=== PATIENT | female | born 1975 | race African-American/Black ===

== ENCOUNTER 2020-03-17 09:50 | Outpatient (REF) | payer BC, SELFPAY ==
[2020-03-20 00:26] LABS: HPV mRNA E6/E7 rflx Not Detected (Not Detected)
== END 2020-03-17 09:51 | disposition home or self-care (01) ==
LOC: HO.LAB 09:50
PROVIDERS: Visit Provider Obstetrics & Gynecology
DX: Z01.419 Encounter for gynecological examination (general) (routine) without abnormal findings (principal); R87.612 Low grade squamous intraepithelial lesion on cytologic smear of cervix (LGSIL)
CPT/HCPCS: 87624; 87625; 88142

== ENCOUNTER 2020-04-07 09:39 | Outpatient (REF) | payer BC, SELFPAY ==
[2020-04-07 14:16] LABS: CT PCR NOT DETECTED (Not Detect.); NG PCR NOT DETECTED (Not Detect.)
== END 2020-04-07 09:40 | disposition home or self-care (01) ==
LOC: HO.LAB 09:39
PROVIDERS: Visit Provider Obstetrics & Gynecology
DX: Z30.09 Encounter for other general counseling and advice on contraception (principal); Z32.02 Encounter for pregnancy test, result negative
CPT/HCPCS: 57456; 81025; 87491; 87591; 88305

== ENCOUNTER → 2020-05-05 15:32 | Outpatient (BNVA) | payer BC, SELFPAY | PROVIDERS: PCP Transplant Surgery; Visit Provider Obstetrics & Gynecology | DX: Z76.89 Persons encountering health services in other specified circumstances (principal) ==

== ENCOUNTER 2021-05-27 14:37 | Outpatient (REF) | payer OTHER, SELFPAY ==
[2021-05-27 16:25] LABS: Syphilis Screen Nonreactive (Nonreactive)
[2021-05-28 01:50] LABS: CT PCR NOT DETECTED (Not Detect.); NG PCR NOT DETECTED (Not Detect.)
[2021-05-28 09:14] LABS: BV Int Neg Control Negative (Negative); BV Int Pos Control Positive (Positive)
[2021-05-29 08:28] LABS: ~HepC Num1 0.14 S/CO (0.00-0.79); ~Hepatitis C Antibody Nonreactive (Nonreactive)
[2021-05-29 08:39] LABS: HBsAGNum1 0.25 S/CO (0.00-0.99); Hepatitis B Surface Antigen Negative (Negative)
[2021-05-29 09:16] LABS: HIV AB/AG Reactive (Nonreactive); HIV Num 3 698.92 S/CO
[2021-06-04 15:00] LABS: HIV 2 Antibody NEGATIVE
[2021-06-04 15:28] LABS: HIV 1 Antibody POSITIVE
== END 2021-05-27 14:38 | disposition home or self-care (01) ==
LOC: HO.LAB 14:37
PROVIDERS: PCP Transplant Surgery; Visit Provider Obstetrics & Gynecology
DX: Z01.411 Encounter for gynecological examination (general) (routine) with abnormal findings (principal); Z11.4 Encounter for screening for human immunodeficiency virus [HIV]; N76.0 Acute vaginitis; B96.89 Other specified bacterial agents as the cause of diseases classified elsewhere; N94.9 Unspecified condition associated with female genital organs and menstrual cycle; Z20.2 Contact with and (suspected) exposure to infections with a predominantly sexual mode of transmission
CPT/HCPCS: 36415; 86701; 86702; 86780; 86803; 87340; 87389; 87480; 87491; 87510; 87591; 87660

== ENCOUNTER → 2021-06-02 12:04 | Outpatient (BNVA) | payer OTHER, SELFPAY | PROVIDERS: Visit Provider Obstetrics & Gynecology ==

== ENCOUNTER 2021-06-15 13:45 | Outpatient (REF) | payer OTHER, SELFPAY ==
--- NOTE | ~2021-06-15 | US_ITS ---
EXAMINATION: US PELVIS CLINICAL INFORMATION: Pelvic pain COMPARISON: None TECHNIQUE: Ultrasound of the pelvis is performed using both transabdominal and transvaginal transducers along with Doppler. Transvaginal imaging is performed due to inadequate visualization transabdominally. FINDINGS: The uterus is anteverted. The uterus measures 12.2 x 5.8 x 8 cm in dimension. There are multiple hypoechoic uterine lesions probably representing fibroids. The 5 largest are measured. There is a 1.8 x 1.1 x 1.2 cm lesion in the anterior uterine body. There is a 2 x 1.2 x 1.4 cm lesion in the anterior uterine body adjacent to the endometrium. There is a 2.4 x 2 x 2.6 cm lesion in the anterior right uterine fundus. There is a 4.1 x 4.5 x 2.8 cm lesion subserosal the left posterior uterine fundus. There is a 1.9 x 1.2 x 1.6 cm lesion in the right anterior upper uterine body. Endometrial thickness is normal measuring 0.4 cm. The right ovary is normal and measures 2.4 x 1.2 x 1.6 cm. Left ovary is enlarged and measures 6.6 x 4.1 x 4.6 cm. There are 2 simple left ovarian cysts measuring 4.2 x 2.7 x 4 cm and 2.4 x 2.6 x 2.2 cm. There is no fluid in the pelvis. US/US pelvic and transvaginal IMPRESSION: Multiple uterine fibroids, largest subserosal to the left posterior uterine fundus measuring 4.1 x 2.5 x 2.8 cm. Enlarged left ovary and 2 simple left ovarian cysts measuring 4.2 x 2.7 x 4 cm 2.1 x 2.6 x 2.2 cm.
== END 2021-06-15 13:46 | disposition home or self-care (01) ==
LOC: HO.US 13:45
PROVIDERS: PCP Orthopaedic Surgery Sports Medicine; Visit Provider Obstetrics & Gynecology
DX: N94.9 Unspecified condition associated with female genital organs and menstrual cycle (principal)
CPT/HCPCS: 76830; 76856

== ENCOUNTER 2021-06-26 13:44 | Outpatient (REF) | payer OTHER, SELFPAY ==
--- NOTE | ~2021-06-26 | MM_ITS ---
EXAMINATION: MM SCREENING DIGITAL BREAST TOMOSYNTHESIS, BILATERAL CLINICAL INFORMATION: Screening. Asymptomatic. Prior history biopsy right breast consistent with fibroadenoma 08/06/2019 ([place], [place]). The lifetime risk of breast cancer based on the Tyrer-Cuzick Model is 9%. COMPARISON: Outside mammography: 06/20/2019 ([facility], [place], [place]). TECHNIQUE: Digital breast tomosynthesis is performed in both the craniocaudal and mediolateral oblique views along with computer-aided detection (CAD). Synthesized 2D images are generated from the tomosynthesis. Additional right CC view is provided. Keloids are marked with skin markers. FINDINGS: There are scattered areas of fibroglandular density (ACR BI-RADS breast composition Category b). Parenchymal pattern is similar to prior outside exam. There is a stable 1.3 cm nodule with open coil biopsy clip marker right breast mid 5:00 position. Smaller stable nodule also noted posterior 12:00 position with either a clip or coarse calcification at margin. There is a dermal lesion consistent with known keloid overlying the mid 9:00 left breast and dermal densities marked with skin markers overlying the anterior mid right breast. There is no interval mass or architectural abnormality or developing density. Some regional round rim dermal calcifications are again seen 9:00-10:00 left breast. The axilla are unremarkable. No significant changes. MM/MM tomosynthesis screening BI IMPRESSION: No significant changes from prior outside exam. ASSESSMENT: BI-RADS 2: Benign RECOMMENDATION: Routine annual mammography screening. This patient's information was entered into a reminder system with a target due date for their next mammogram.
== END 2021-06-26 13:45 | disposition home or self-care (01) ==
LOC: HO.MAMMO 13:44
PROVIDERS: Visit Provider Obstetrics & Gynecology
DX: Z12.31 Encounter for screening mammogram for malignant neoplasm of breast (principal)
CPT/HCPCS: 77063; 77067

== ENCOUNTER → 2021-06-29 11:29 | Outpatient (BNVA) | payer OTHER, SELFPAY | PROVIDERS: Visit Provider Obstetrics & Gynecology ==

== ENCOUNTER → 2021-07-22 13:36 | Outpatient (BNVA) | payer OTHER, SELFPAY | PROVIDERS: PCP Orthopaedic Surgery Sports Medicine; Referring Provider Obstetrics & Gynecology; Visit Provider Nurse Practitioner Family | DX: Z01.818 Encounter for other preprocedural examination (principal) | CPT/HCPCS: 99202 ==

== ENCOUNTER 2021-08-24 10:37 | Day surgery (SDC) | payer OTHER, SELFPAY ==
[2021-08-18 14:46] VITALS: BMI 26.4
--- NOTE | 2021-08-20 14:52 | P.CONAN_ITS ---
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 LGSIL (low grade squamous intraepithelial dysplasia) Family History Family History (Updated 07/22/21 @ 13:51 by KARIE Saldana) Father Lung cancer Surgical History Surgical History (Updated 07/22/21 @ 13:51 by KARIE Saldana) Hx of breast biopsy Social History Social History Alcohol intake: never Advance Directives: No Advance Directives Information Provided: Yes Advance Directives on File: No Sexual orientation: Straight/Heterosexual Gender identity: Female Meds Allergies Allergy/AdvReac Type Severity Reaction Status Date / Time No Known Allergies Allergy Verified 05/27/21 14:49 Home Medications Medication Instructions Recorded Confirmed Last Taken Type bictegravir 50 mg-emtricitabine 1 tab PO DAILY 07/22/21 08/18/21 08/24/21 History 200 mg-tenofovir alafenam 25 mg tablet (Biktarvy) iron,carbonyl 65 mg-vitamin C 125 2 tab PO Q OTHER DAY 07/22/21 08/18/21 Unknown History mg tablet,delayed release (Vitron-C) Exam Exam Date and Time: August 20, 2021 1452 Height,Weight and Vital Signs: Height 5 ft 6 in Weight 74.389 kg Assessment and Plan Assessment Anesthesia Assessment: Chart Reviewed Documented by User: Kylah Bartholomew MD 08/24/21 12:07 [facility] Past Medical History Medical History Anemia ASCUS with positive high risk HPV 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 LGSIL (low grade squamous intraepithelial dysplasia) Family History Family History (Updated 07/22/21 @ 13:51 by KARIE Saldana) Father Lung cancer Family history of problems with anesthesia: No Surgical History Surgical History (Updated 07/22/21 @ 13:51 by KARIE Saldana) Hx of breast biopsy History of Problems with Anesthesia: No Social History Social History Alcohol intake: never Advance Directives: No Advance Directives Information Provided: Yes Advance Directives on File: No Sexual orientation: Straight/Heterosexual Gender identity: Female Meds Allergies Allergy/AdvReac Type Severity Reaction Status Date / Time No Known Allergies Allergy Verified 05/27/21 14:49 Home Medications Medication Instructions Recorded Confirmed Last Taken Type bictegravir 50 mg-emtricitabine 1 tab PO DAILY 07/22/21 08/18/21 08/24/21 History 200 mg-tenofovir alafenam 25 mg tablet (Biktarvy) iron,carbonyl 65 mg-vitamin C 125 2 tab PO Q OTHER DAY 07/22/21 08/18/21 Unknown History mg tablet,delayed release (Vitron-C) Exam Airway Mallampati Class: II TM Dist: >3cm Neck ROM: Full Denture: Upper Heart: rrr Lungs: cta Assessment and Plan Assessment Anesthesia Assessment: Anesthesia Plan Discussed and Chart Reviewed Final Anesthetic Review Family History of Problems with Anesthesia: No History of Problems with Anesthesia: No ASA Class: II Final Preanesthetic Review: No Changes in Pt Med Stat, Meds/Allgs Chart Reviewed and Consent Obtained/Reviewed Patient Risk: Intermediate Procedure Risk: Intermediate Anesthetic Plan Anesthetic Plan: MAC: Disposition: Standard PACU
[2021-08-24 11:23] VITALS: BP 136/76; PULSE 84; RESP 17; TEMP 36.1; O2SAT 99
[2021-08-24] MEDS: Lactated Ringers 1,000 ML 100 ML IVCONT (11:41)
[2021-08-24 11:43] LABS: UPreg QC Valid YES; Urine Pregnancy NEGATIVE (NEGATIVE)
--- NOTE | 2021-08-24 12:44 | P.HPSUR_ITS ---
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 LGSIL (low grade squamous intraepithelial dysplasia)) History of Previous Operations: Relevant previous surgery/procedure and date(s) (Hx of breast biopsy) Allergies: Allergies Allergy/AdvReac Type Severity Reaction Status Date / Time No Known Allergies Allergy Verified 05/27/21 14:49 Review of Systems Sugical H&P ROS: Negative: Constitution, Cardiovascular, Respiratory and Ga strointestinal Exam Surgical H&P Exam: Normal: Heart, Normal: Lungs, Normal: Extremities and Normal: Abdomen Plan Diagnosis/Plan: Unchanged I have reviewed the history and physical and performed a pertinent physical examination on my patient. No changes have occurred unless specified.
--- NOTE | 2021-08-24 12:52 | W.PM.OPN ---
Operative Note Operative Note Date of Service: 08/24/21 Narrative: Pre-op diagnosis: Colon cancer screening Post-op diagnosis:?other (Colon polyps) Procedure: COLONOSCOPY TILL CECUM WITH BIOPSIES Consent: Indications for the procedure and potential complications of bleeding, perforation, reaction to medications and missed diagnosis were discussed with the patient and informed consent was obtained. Instrument: Olympus PCF H 190 L variable stiffness pediatric colonoscope Monitoring: Vital signs and clinical assessment, intermittent blood pressure monitoring, continuous EKG monitoring, Pulse oximetry and Carbon Dioxide monitoring were done throughout the procedure. Colon withdrawl time was 20 minutes. Procedure: The patient was placed in the left lateral decubitis position and pre-procedure medications were administered. After a digital rectal examination of the ano-rectum, the video colonoscope was inserted into the rectum and advanced through the colon to the cecum. The colonoscope was slowly withdrawn in a retrograde panoramic fashion and the colon mucosa was carefully examined including a retroflexed view of the rectum. Findings and interventions are described below. Procedure Difficulty: Without difficulty Findings: Terminal Ileum: Not evaluated Cecum:? Normal Ascending Colon:? A 4-5 mm sessile polyp in the proximal AC removed with a cold bx Transverse Colon:? A 2-3 mm diminutive appearing polyp removed with the cold biopsy Descending Colon:? Normal Sigmoid Colon:? Normal Rectum:? Normal Ano-rectum:? Normal Colon preparation: ? Fair despite copious irrigation and poor in the right colon due to undigested vegetable matter which could not be suctioned Impression and Post Procedure Diagnosis: Colonoscopy Findings: Two small polyps removed Fair despite copious irrigation and poor in the right colon Plan: Await pathology results Patient has an appointment on 09/08/21 in the GI Clinic with Paulina Palacio FNP- . Repeat Colonoscopy interval based on path results - in 2-3 years if polyps are adenomatous and due to fair prep. Above findings were reviewed with the patient and colon polyps handouts was given in the discharge area Surgeon: Armand Rodriguez MD Anesthesia:?MAC (Dr Burden) Was an Director Alumni Relations used for this Procedure?:?Yes Director Alumni Relations:?Francisca Giles Estimated blood loss (mL):?0 Pathology:?other ( A. ascending colon polyp? B. transverse colon polyp) Condition:?stable Disposition:?PACU
[2021-08-24 13:28] VITALS: BP 97/60; PULSE 78; RESP 16; TEMP 37; O2SAT 100
[2021-08-24 13:43] VITALS: BP 105/62; PULSE 76; RESP 16
[2021-08-24 13:58] VITALS: BP 118/77; PULSE 75; RESP 16; TEMP 37; O2SAT 100
== END 2021-08-24 14:59 | disposition home or self-care (01) ==
PROVIDERS: Nurse Practitioner; PCP Transplant Surgery; Visit Provider Internal Medicine Gastroenterology
PROC: 0DJD8ZZ Inspection of Lower Intestinal Tract, Via Natural or Artificial Opening Endoscopic (ICD-10-PCS; CPT 45378; principal; 2021-08-24 12:30)
DX: Z12.11 Encounter for screening for malignant neoplasm of colon (principal); D12.2 Benign neoplasm of ascending colon; K63.5 Polyp of colon; D64.9 Anemia, unspecified; Z21 Asymptomatic human immunodeficiency virus [HIV] infection status
CPT/HCPCS: 45380; 81025; 88305

== ENCOUNTER → 2021-09-08 13:26 | Outpatient (BNVA) | payer OTHER, SELFPAY | PROVIDERS: PCP Transplant Surgery; Visit Provider Nurse Practitioner Family | DX: K59.01 Slow transit constipation (principal); D36.9 Benign neoplasm, unspecified site; Z98.890 Other specified postprocedural states | CPT/HCPCS: 99212 ==

== ENCOUNTER 2022-02-04 13:04 | Outpatient (REF) | payer OTHER, SELFPAY ==
--- NOTE | ~2022-02-04 | US_ITS ---
EXAMINATION: US PELVIS CLINICAL INFORMATION: Abnormal uterine and vaginal bleeding. COMPARISON: None. TECHNIQUE: Ultrasound of the pelvis is performed using both transabdominal and transvaginal transducers along with Doppler. Transvaginal imaging is performed due to inadequate visualization transabdominally. FINDINGS: The uterus is anteverted and measures 10.9 x 5.5 x 8.8 cm in dimension. There are multiple uterine fibroids. At least 8 focal fibroids are appreciated on the current exam. Largest fibroids measure 3.7 x 2.8 x 2.6 cm in the right uterine body and 3.3 x 3.4 x 3.2 cm in the left uterine body. There are several smaller fibroids adjacent to the endometrium that may be submucosal. Endometrial thickness is normal measuring 0.8 cm. The right ovary is not seen. The left ovary measures 3.3 x 1.8 x 1.6 cm and is normal-appearing. There is a 2.9 x 2.2 x 2.6 cm simple cyst just deep to the anterior abdominal wall anterior and superior to the left side of the uterus. This does not appear to be associated with the left ovary or uterus This was not appreciated on previous exam. There is no fluid in the pelvis. US/US pelvic and transvaginal IMPRESSION: Innumerable uterine fibroids, largest measuring 3 x 4 cm. Some smaller fibroids may be submucosal in location. Normal thickness endometrium. Normal left ovary. Right ovary not seen. 2 x 3 cm superficial simple cyst just deep to the abdominal wall of uncertain etiology.
== END 2022-02-04 13:05 | disposition home or self-care (01) ==
LOC: HO.US 13:04
PROVIDERS: Visit Provider Obstetrics & Gynecology
DX: N93.9 Abnormal uterine and vaginal bleeding, unspecified (principal); D21.9 Benign neoplasm of connective and other soft tissue, unspecified
CPT/HCPCS: 76830; 76856

== ENCOUNTER → 2022-02-18 11:16 | Outpatient (BNVA) | payer OTHER, SELFPAY | PROVIDERS: PCP Transplant Surgery; Visit Provider Obstetrics & Gynecology | DX: D21.9 Benign neoplasm of connective and other soft tissue, unspecified (principal) | CPT/HCPCS: 99212 ==

== ENCOUNTER 2022-10-08 09:15 | Outpatient (REF) | payer BC, SELFPAY ==
[2022-10-14 22:54] LABS: HPV mRNA E6/E7 rflx Not Detected (Not Detected)
== END 2022-10-08 09:16 | disposition home or self-care (01) ==
LOC: HO.LNP 09:15
PROVIDERS: PCP Transplant Surgery; Visit Provider Obstetrics & Gynecology
DX: Z01.419 Encounter for gynecological examination (general) (routine) without abnormal findings (principal); Z11.51 Encounter for screening for human papillomavirus (HPV)
CPT/HCPCS: 87624; 88142

== ENCOUNTER 2022-11-18 10:00 | Outpatient (REF) | payer BC, SELFPAY ==
--- NOTE | ~2022-11-18 | MM_ITS ---
EXAMINATION: MM SCREENING DIGITAL BREAST TOMOSYNTHESIS, BILATERAL CLINICAL INFORMATION: Screening. Asymptomatic. The lifetime risk of breast cancer based on the Tyrer-Cuzick Model is 8.3%. COMPARISON: Mammography: This study is compared with prior exams dating back to 2019. TECHNIQUE: Digital breast tomosynthesis is performed in both the craniocaudal and mediolateral oblique views along with computer-aided detection (CAD). Synthesized 2D images are generated from the tomosynthesis. FINDINGS: There are scattered areas of fibroglandular density (ACR BI-RADS breast composition Category b). There are no significant masses, abnormal calcifications, or other abnormalities. A biopsy tissue marker is associated with benign oval mass at the lower inner quadrant of the left breast. A second tissue marker is present in the superior aspect the deep third of the right breast also indicating the site of prior benign percutaneous biopsy. The patient is known to have a large keloid at the medial aspect of the left breast. There is also some focal skin beginning just inferior to the right nipple which appears chronic. This is also likely related to keloid formation. There are also keloids in the skin of the superior aspect of the right breast just above the nipple. MM/MM tomosynthesis screening BI IMPRESSION: No mammographic evidence of malignancy. ASSESSMENT: BI-RADS BI-RADS 2 - Benign Findings RECOMMENDATION: Routine annual mammography screening. 1 year F/U This examination should not preclude the clinical evaluation of a suspicious palpable abnormality. This patient's information was entered into a reminder system with a target due date for their next mammogram.
== END 2022-11-18 10:01 | disposition home or self-care (01) ==
LOC: HO.MAMMO 10:00
PROVIDERS: Visit Provider Obstetrics & Gynecology
DX: Z12.31 Encounter for screening mammogram for malignant neoplasm of breast (principal)
CPT/HCPCS: 77063; 77067

== ENCOUNTER → 2022-11-18 10:15 | Outpatient (BNV) | payer BC, SELFPAY | PROVIDERS: Visit Provider Radiology Diagnostic Radiology | DX: Z12.31 Encounter for screening mammogram for malignant neoplasm of breast (principal) | CPT/HCPCS: 77063; 77067 ==

== ENCOUNTER 2023-11-14 11:07 | Outpatient (REF) | payer BC, SELFPAY | END 2023-11-14 11:08 | disposition home or self-care (01) | LOC: HO.LNP 11:07 | PROVIDERS: Visit Provider Obstetrics & Gynecology | DX: Z13.89 Encounter for screening for other disorder (principal) ==

== ENCOUNTER 2023-11-14 11:07 | Outpatient (AMB) | payer BC, SELFPAY ==
[2023-11-14 11:18] VITALS: BP 116/72; BMI 30.8
--- NOTE | 2023-11-14 11:18 | A.OFFVIS_ITS ---
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 LGSIL (low grade squamous intraepithelial dysplasia) ASCUS with positive high risk HPV Anemia Surgical History Hx of colonoscopy Hx of breast biopsy Family History Father Lung cancer Social History Household Members: Significant Other Housing: Apartment Alcohol intake: current Alcohol intake frequency: holidays/special occasions only Patient Tobacco Use Status: Never used Tobacco Current occupational status: employed Current occupation: [employer] Sexual orientation: Straight/Heterosexual Gender identity: Female Female Reproductive History Menstrual Age of Menarche: 11 Duration of menses: 3-5 days Date of last menstrual period: 10/18/23 control method: none Total pregnancies: 2 Full term: 1 Number of Living Children: 1 Ab spontaneous: 1 Date of last pap smear: 10/13/22 History of abnormal pap smear: No History of STI: No Date of Mammogram: 11/18/22 History of abnormal mammogram: No Review of Systems Const All systems reviewed & are unremarkable except as noted in HPI and below Card Reports as per HPI Resp Reports as per HPI GI Reports as per HPI and Reports no additional complaints Reports as per HPI Physical Exam Vital Signs: Last Vital Signs BP 116/72 11/14/23 11:18 BMI result Body Mass Index 30.8 Const General: cooperative, healthy appearing and comfortable Chest Chest palpation & inspection: normal inspection of the chest and normal palpation of entire chest wall Breast/axilla inspection: normal inspection of the breasts and normal inspection of the axillae Breast/axilla palpation: normal palpation of the breasts, normal palpation of the axillae and no axillary lymphadenopathy Resp Effort & Inspection: normal respiratory effort Auscultation: clear to auscultation bilaterally Percussion: percussion normal Cardio Palpation: normal PMI Rate: regular rate Rhythm: regular rhythm Heart sounds: no murmurs and no rubs Peripheral pulses: Peripheral pulses 2+ throughout GI Inspection: Yes normal to inspection Palpation (GI): Soft to palpation, nontender, no guarding, not rigid and No hepatosplenomegaly present Percussion: Yes normal to percussion Auscultation: normal bowel sounds Rectal Exam - Female: deferred General: Yes bladder normal to palpation External Female Exam: No lesion Speculum Exam - Vagina: normal appearance of the vagina, normal palpation, normal vaginal discharge and not erythematous Speculum Exam - Cervix: normal appearance of the cervix and normal palpation Bimanual exam- vagina & uterus: normal bimanual exam, normal palpation, uterine size normal, bladder normal to palpation, consistency normal and normal palpation Bimanual Exam- Adnexa, other: normal adnexae, no masses and no tenderness Assessment & Plan Assessment & Plan (1) Well woman exam: Comment: History of ASCUS HPV positive in 2017, LGSIL in 2018, negative co testing with negative colpo ECC in 2019 HIV positive Code(s): Z01.419 - Encounter for gynecological examination (general) (routine) without abnormal findings Category: Medical Plan: Co testing done. Anal screening recommended but adamantly declined by the pt Counseled the patient about the recommended dietary allowance of 1200 mg of Calcium & 600 IU of vitamin D. Mammogram scheduled in few weeks. The patient was referred to GI for screening colonoscopy . The patient was instructed to perform monthly self-breast exams and schedule annual exam in a year. All questions answered and the patient verbalized understanding. (2) Abnormal uterine bleeding (AUB): Code(s): N93.9 - Abnormal uterine and vaginal bleeding, unspecified Category: Medical Plan: Co testing done, GC and chlamydia taken CBC, TSH, prolactin, FSH/LH, HCG, and pelvic ultrasound ordered. Discussed with the patient the different causes of abnormal bleeding including thyroid disorders, uterine and ovarian pathology, endometrial hyperplasia, carcinoma and other potential causes. Discussed with the patient the work up including CBC (to r/o anemia), TSH, prolactin, pelvic Ultrasound, endometrial biopsy to r/o endometrial pathology. All questions answered and the patient verbalized understanding. Instructed the patient to schedule an appointment for an endometrial biopsy in 2 weeks. Orders: Orders Pap Smear Today Z01.419 - Encounter for gynecological examination (general) (routine) without abnormal findings Follicle Stimulating Hormone Today N93.9 - Abnormal uterine and vaginal bleeding, unspecified TSH reflex Free T4 Today N93.9 - Abnormal uterine and vaginal bleeding, unspecified Prolactin Today N93.9 - Abnormal uterine and vaginal bleeding, unspecified US pelvic and transvaginal Today N93.9 - Abnormal uterine and vaginal bleeding, unspecified MM tomosynthesis screening BI Today Z12.31 - Encounter for screening mammogram for malignant neoplasm of breast CT NG by PCR Today Z11.3 - Encounter for screening for infections with a predominantly sexual mode of transmission Lutenizing Hormone Today N93.9 - Abnormal uterine and vaginal bleeding, unspecified HCG Quantitative Today N93.9 - Abnormal uterine and vaginal bleeding, unspecified Complete Blood Count no Diff Today N93.9 - Abnormal uterine and vaginal bleeding, unspecified Referrals Gastroenterology Referral Z12.11 - Encounter for screening for malignant neoplasm of colon Coding Level of Care Code Est Pt Prev Care 40-64y(48991) Diagnoses Well woman exam Z01.419 Abnormal uterine bleeding (AUB) N93.9
== END 2023-11-14 12:14 | disposition home or self-care (01) ==
PROVIDERS: Visit Provider Obstetrics & Gynecology
DX: Z01.419 Encounter for gynecological examination (general) (routine) without abnormal findings (principal); N93.9 Abnormal uterine and vaginal bleeding, unspecified
CPT/HCPCS: 99396

== ENCOUNTER 2023-11-14 11:59 | Outpatient (REF) | payer BC, SELFPAY ==
[2023-11-14 13:07] LABS: Hematocrit 36.2 % (37.0-47.0); Hemoglobin 11.6 g/dl (12.0-16.0); Mean Corpuscular Hemoglobin 28.9 pg (27.0-33.0); Mean Platelet Volume 9.9 fL (9.4-12.3); Platelet Count 242 X10*3/uL (160-400); Red Blood Count 4.02 X10*6/uL (4.20-5.50); Red Cell Distribution Width 14.8 % (11.0-16.0); White Blood Count 3.1 X10*3/uL (4.8-10.8)
[2023-11-14 13:39] LABS: HCG Quantitative < 2 mIU/mL; TSH reflex Free T4 2.11 uIU/mL (0.32-4.0)
[2023-11-15 13:32] LABS: CT PCR NOT DETECTED (Not Detect.); NG PCR NOT DETECTED (Not Detect.)
[2023-11-15 13:37] LABS: Follicle Stimulating Hormone 29.5 mIU/mL; Lutenizing Hormone 23.6 mIU/mL; Prolactin 28.1 ng/mL
[2023-11-16 08:24] LABS: HPV mRNA E6/E7 Not Detected (Not Detected)
== END 2023-11-14 12:00 | disposition home or self-care (01) ==
LOC: HO.LAB 11:59
PROVIDERS: Visit Provider Obstetrics & Gynecology
DX: Z11.3 Encounter for screening for infections with a predominantly sexual mode of transmission (principal); N93.9 Abnormal uterine and vaginal bleeding, unspecified
CPT/HCPCS: 36415; 83001; 83002; 84146; 84443; 84702; 85027; 87491; 87591; 87624; 88175

== ENCOUNTER 2023-11-24 09:10 | Outpatient (REF) | payer BC, SELFPAY ==
--- NOTE | ~2023-11-24 | MM_ITS ---
EXAMINATION: MM SCREENING DIGITAL BREAST TOMOSYNTHESIS, BILATERAL CLINICAL INFORMATION: Screening. Asymptomatic. COMPARISON: Mammography: This study is compared with prior exams dating back to 2021. TECHNIQUE: Digital breast tomosynthesis is performed in both the craniocaudal and mediolateral oblique views along with computer-aided detection (CAD). Synthesized 2D images are generated from the tomosynthesis. FINDINGS: There are scattered areas of fibroglandular density (ACR BI-RADS breast composition Category b). There are no significant masses, abnormal calcifications, or other abnormalities. There are 2 tissue markers in the right breast. The more inferiorly located tissue marker is associated with a well-circumscribed,, benign, unchanged subcentimeter mass. Patient has a large keloid at the medial aspect of the left breast. MM/MM tomosynthesis screening BI IMPRESSION: No mammographic evidence of malignancy. ASSESSMENT: BI-RADS BI-RADS 2 - Benign Findings RECOMMENDATION: Routine annual mammography screening. 1 year F/U This examination should not preclude the clinical evaluation of a suspicious palpable abnormality. This patient's information was entered into a reminder system with a target due date for their next mammogram.
== END 2023-11-24 09:11 | disposition home or self-care (01) ==
LOC: HO.MAMMO 09:10
PROVIDERS: Absent Provider Obstetrics & Gynecology; PCP Internal Medicine Infectious Disease; Visit Provider Internal Medicine Infectious Disease
DX: Z12.31 Encounter for screening mammogram for malignant neoplasm of breast (principal)
CPT/HCPCS: 77063; 77067

== ENCOUNTER → 2023-11-24 10:15 | Outpatient (BNV) | payer BC, SELFPAY | PROVIDERS: Absent Provider Obstetrics & Gynecology; PCP Internal Medicine Infectious Disease; Visit Provider Radiology Diagnostic Radiology | DX: Z12.31 Encounter for screening mammogram for malignant neoplasm of breast (principal) | CPT/HCPCS: 77063; 77067 ==